=== PATIENT | male | born 1945 | race Caucasian/White ===

== ENCOUNTER → 2021-02-28 01:57 | Outpatient (CLI) | payer MEDICARE, SELFPAY ==
[2021-02-28 19:16] LABS: SARS-CoV-2 RNA PCR Negative
== END ==
PROVIDERS: PCP Physician Assistant; Visit Provider Internal Medicine Hematology & Oncology
DX: Z01.812 Encounter for preprocedural laboratory examination (principal); Z20.822 Contact with and (suspected) exposure to COVID-19
CPT/HCPCS: C9803; U0003; U0005

== ENCOUNTER 2021-03-04 01:20 | Day surgery (SDC) | payer MEDICARE, SELFPAY ==
--- NOTE | ~2021-03-04 | BM_ITS ---
EXAMINATION: CCL basic procedure ORDER COMPLETED DATE: 04/20/2021 13:35 INDICATION: Macrocytic anemia TECHNIQUE: A time-out was performed to verify the patient's name, date of , and procedure to b e performed. The procedure including the risks, benefits, and alternatives was discussed with the pat ient. Risks discussed included bleeding and infection. The patient understood the risks and agreed to proceed. The skin overlying the right posterior iliac spine was prepped and draped in usual sterile fashion. Anesthetic was administered with 1% lidocaine subcutaneously. Systemic analgesia was provide d with 50 mcg fentanyl IV. An 11 gauge needle was inserted into the ilium with fluoroscopic guidance. Bone marrow was aspirated. An 8 gauge needle was then inserted into the ilium with fluoroscopic guid ance. A core bone marrow biopsy was obtained. There were no immediate complications. Fluoroscopy expo sure time was 0.1 minutes. The total number of images was 44. FINDINGS: Real-time fluoroscopy demonstrates a marker overlying the right posterior iliac spine. IMPRESSION: 1. Successful fluoro-guided bone marrow aspiration. 2. Successful fluoro-guided bone marrow core biopsy. Reviewed, dictated and finalized at location A.
[2021-03-04 07:27] LABS: Basophils Absolute Auto 0.1 K/mm3 (0.0-0.1); Basophils Percent Auto 1.2 % (0.2-1.2); Eosinophils Absolute Auto 0.2 K/mm3 (0-0.3); Eosinophils Percent Auto 2.1 % (0-4.4); Hematocrit 35.2 % (42.0-52.0); Immature Granulocyte Absolute 0.02 K/mm3 (0.00-0.031); Immature Granulocyte Percent A 0.2 % (0-0.5); Lymphocytes Percent Auto 21.4 % (18.3-44.2); Mean Corpuscular HGB Conc 34.1 g/dl (32-36); Mean Corpuscular Hemoglobin 39.6 pg (26-34); Mean Corpuscular Volume 116.2 fl (80-100); Mean Platelet Volume 11.2 fl (7.4-10.4); Monocytes Absolute Auto 0.8 K/mm3 (0.1-0.6); Monocytes Percent Auto 8.9 % (2.6-8.5); Neutrophils Absolute Auto 5.9 K/mm3 (1.3-6.7); Neutrophils Percent Auto 66.2 % (45.5-73.1); Platelet Count Result 298 k/mm3 (150-375); Red Blood Count 3.03 M/mm3 (4.6-6.20); Red Cell Distribution Width 14.1 % (11.5-14.5); White Blood Count 8.9 K/mm3 (4.5-10.0)
[2021-03-04 07:36] LABS: INR 0.9; Prothrombin Time 12.7 Seconds (11.1-14.7)
[2021-03-04 07:48] VITALS: BP 147/96; PULSE 68; RESP 10; TEMP 36.2; O2SAT 96; BMI 28.4
--- NOTE | 2021-03-04 09:03 | P.SEDATION_ITS ---
Moderate Sedation Note-Pt Data Patient Data Allergies Allergy/AdvReac Type Severity Reaction Status Date / Time codeine Allergy Unknown TINGLING, Verified 03/03/21 15:33 FLUSHING ether Allergy Unknown NAUSEA/VOMI Verified 03/03/21 15:33 TING Home Medications Medication Instructions Recorded Confirmed Type albuterol sulfate [Ventolin HFA] 2 puff INHALATION DAILY 03/04/21 03/04/21 History aspirin 81 mg PO DAILY 03/04/21 03/04/21 History atorvastatin 40 mg PO DAILY 03/04/21 03/04/21 History cholecalciferol (vitamin D3) 50 mcg PO DAILY 03/04/21 03/04/21 History [Vitamin D3] cyanocobalamin (vitamin B-12) 1,000 mcg PO DAILY 03/04/21 03/04/21 History [Vitamin B-12] dorzolamide-timolol 1 drp EACH EYE BID 03/04/21 03/04/21 History latanoprost 1 drp EACH EYE HS 03/04/21 03/04/21 History lisinopril 40 mg PO DAILY 03/04/21 03/04/21 History metoprolol succinate 25 mg PO DAILY 03/04/21 03/04/21 History omeprazole 20 mg PO DAILY 03/04/21 03/04/21 History umeclidinium [Incruse Ellipta] 1 inh INHALATION DAILY 03/04/21 03/04/21 History Current Medications: Active Medications Sodium Chloride (Normal Saline Iv) 500 mls @ 100 mls/hr IV CONT .Q5H [facility] Sedation/Anesthesia: No previous sedation/anesthesia problems (including family history). Mod Sed Physical Exam Physical Exam Pre Procedural Exam: Normal: Appearance, Eyes, Ears, Nose, Throat, Airway, Lungs, Heart Rate, Heart Rhythm, Abdomen and Skin Hours since solid foods: 11 Hours since liquid intake: 11 Internal Medicine - PN: Obj Da Vital Signs Vital Signs: Vital Signs - 24 hr 03/04/21 07:48 Temperature 97.1 F L Pulse Rate 68 Respiratory Rate 10 L Blood Pressure 147/96 H Pulse Oximetry 96 Meds/Results Medications: Active Medications Generic Name Dose Route Start Last Admin Trade Name Freq PRN Reason Stop Dose Admin Sodium Chloride 500 mls @ 100 mls/hr 03/04/21 07:00 Normal Saline Iv IV CONT .Q5H [facility] Labs CBC & Chem 7: 03/04/21 07:14 Labs: Laboratory Results - last 24 hr 03/04/21 03/04/21 07:14 07:14 WBC 8.9 RBC 3.03 L Hgb 12.0 L Hct 35.2 L MCV 116.2 H MCH 39.6 H MCHC 34.1 RDW 14.1 Plt Count 298 MPV 11.2 H Immature Gran % (Auto) 0.2 Neut % (Auto) 66.2 Lymph % (Auto) 21.4 [place] % (Auto) 8.9 H Eos % (Auto) 2.1 Baso % (Auto) 1.2 Lymph # (Auto) 1.90 [place] # (Auto) 0.8 H Eos # (Auto) 0.2 Baso # (Auto) 0.1 Abs Immat Gran (auto) 0.02 Absolute Neuts (auto) 5.9 Absolute Nucleated RBC 0.0 Nucleated RBC % 0.0 PT 12.7 INR 0.9 ASA Classification/Sedation ASA Classification/Sedation Risks: Risks, benefits and alternatives explained and patient/family accepted plan for sedation. Patient re-evaluated immediately prior to sedation.
--- NOTE | 2021-03-04 09:05 | WPDMODSED ---
Moderate Sedation Note-Pt Data Patient Data Allergies Allergy/AdvReac Type Severity Reaction Status Date / Time codeine Allergy Unknown TINGLING, Verified 03/03/21 15:33 FLUSHING ether Allergy Unknown NAUSEA/VOMI Verified 03/03/21 15:33 TING Home Medications Medication Instructions Recorded Confirmed Type albuterol sulfate [Ventolin HFA] 2 puff INHALATION DAILY 03/04/21 03/04/21 History aspirin 81 mg PO DAILY 03/04/21 03/04/21 History atorvastatin 40 mg PO DAILY 03/04/21 03/04/21 History cholecalciferol (vitamin D3) 50 mcg PO DAILY 03/04/21 03/04/21 History [Vitamin D3] cyanocobalamin (vitamin B-12) 1,000 mcg PO DAILY 03/04/21 03/04/21 History [Vitamin B-12] dorzolamide-timolol 1 drp EACH EYE BID 03/04/21 03/04/21 History latanoprost 1 drp EACH EYE HS 03/04/21 03/04/21 History lisinopril 40 mg PO DAILY 03/04/21 03/04/21 History metoprolol succinate 25 mg PO DAILY 03/04/21 03/04/21 History omeprazole 20 mg PO DAILY 03/04/21 03/04/21 History umeclidinium [Incruse Ellipta] 1 inh INHALATION DAILY 03/04/21 03/04/21 History Current Medications: Active Medications Sodium Chloride (Normal Saline Iv) 500 mls @ 100 mls/hr IV CONT .Q5H [facility] Sedation/Anesthesia: No previous sedation/anesthesia problems (including family history). PMFSH Surgical History Surgical History (Updated 03/04/21 @ 09:11 by Sylvain Arambula MD) H/O knee surgery History of tonsillectomy Social History Social History (Updated 03/04/21 @ 09:12 by Sylvain Arambula MD) Smoking status: Former smoker Alcohol intake: current Mod Sed Physical Exam Physical Exam Pre Procedural Exam: Normal: Appearance, Eyes, Ears, Nose, Throat, Airway, Lungs, Heart Rate, Heart Rhythm, Abdomen and Skin Hours since solid foods: 11 Hours since liquid intake: 11 Internal Medicine - PN: Obj Da Vital Signs Vital Signs: Vital Signs - 24 hr 03/04/21 07:48 Temperature 97.1 F L Pulse Rate 68 Respiratory Rate 10 L Blood Pressure 147/96 H Pulse Oximetry 96 Meds/Results Medications: Active Medications Generic Name Dose Route Start Last Admin Trade Name Sundayq PRN Reason Stop Dose Admin Sodium Chloride 500 mls @ 100 mls/hr 03/04/21 07:00 Normal Saline Iv IV CONT .Q5H [facility] Labs CBC & Chem 7: 03/04/21 07:14 Labs: Laboratory Results - last 24 hr 03/04/21 03/04/21 07:14 07:14 WBC 8.9 RBC 3.03 L Hgb 12.0 L Hct 35.2 L MCV 116.2 H MCH 39.6 H MCHC 34.1 RDW 14.1 Plt Count 298 MPV 11.2 H Immature Gran % (Auto) 0.2 Neut % (Auto) 66.2 Lymph % (Auto) 21.4 [place] % (Auto) 8.9 H Eos % (Auto) 2.1 Baso % (Auto) 1.2 Lymph # (Auto) 1.90 [place] # (Auto) 0.8 H Eos # (Auto) 0.2 Baso # (Auto) 0.1 Abs Immat Gran (auto) 0.02 Absolute Neuts (auto) 5.9 Absolute Nucleated RBC 0.0 Nucleated RBC % 0.0 PT 12.7 INR 0.9 ASA Classification/Sedation ASA Classification/Sedation ASA Class: II Emergent: No Risks: Risks, benefits and alternatives explained and patient/family accepted plan for sedation. Patient re-evaluated immediately prior to sedation.
[2021-03-04 09:45] VITALS: BP 152/75; PULSE 54; RESP 12; TEMP 36.8; O2SAT 94
[2021-03-04 10:00] VITALS: BP 142/71; PULSE 56; RESP 14; O2SAT 96
[2021-03-04 10:15] VITALS: BP 132/72; PULSE 53; RESP 12; O2SAT 98
--- NOTE | 2021-03-04 10:40 | SUR.PHASEII ---
Discharge teaching done and instructions given to patient. Patient and verbalize understanding. Patient escorted to vehicle via wheelchair, where he was driven home by his .
== END 2021-03-04 10:40 | disposition home or self-care (01) ==
PROVIDERS: PCP Physician Assistant; Referring Provider Internal Medicine Hematology & Oncology; Visit Provider Radiology Diagnostic Radiology
DX: D53.9 Nutritional anemia, unspecified (principal); I10 Essential (primary) hypertension; E78.5 Hyperlipidemia, unspecified; J44.9 Chronic obstructive pulmonary disease, unspecified; F43.10 Post-traumatic stress disorder, unspecified; Z79.82 Long term (current) use of aspirin
CPT/HCPCS: 36415; 38222; 85025; 85610; 88184; 88185; 88305; 88311; 88313; 88341; 88342; 88360; 88364; 88365; C9803; J2250; J3010; J7040; U0003; U0005

== ENCOUNTER 2021-03-06 07:22 | Outpatient (CLI) | payer MEDICARE, SELFPAY ==
--- NOTE | ~2021-03-06 | US_ITS ---
EXAMINATION: US abdomen complete DATE: 03/06/2021 09:54 INDICATION: Liver disease TECHNIQUE: Multiple grayscale and Doppler ultrasound images of the abdomen were obtained. COMPARISON: None available FINDINGS: The head and body of the pancreas are normal. The pancreatic tail is obscured by bowel gas. The liver is normal with normal echogenicity and echotexture. No surface nodularity. Normal hepatope lucille flow in the main portal vein. The gallbladder is normal with no abnormal wall thickening, pericho lecystic fluid or stones. The normal common bile duct measures 4 mm. There was no sonographic Mcintosh sign. The visualized portions of the aorta and inferior vena cava are normal. The right kidney measures 14.2 x 8.9 x 7.1 cm. There is a 10.0 x 10.3 x 8.4 cm cystic lesion of the k idney with internal septations, some of which appear to be thickened. The left kidney measures 11.5 x 5.5 x 6.5 cm. The kidneys demonstrate normal parenchymal echogenicity. There is no hydronephrosis. T he spleen is normal in appearance and measures 11.0 cm. IMPRESSION: 1. 10.3 cm cystic lesion of the right kidney with internal septations. Further evaluation by CT or MR I with contrast is recommended. Otherwise unremarkable ultrasound. Reviewed, dictated and finalized at location A. IMPRESSION: 1. 10.3 cm cystic lesion of the right kidney with internal septations. Further evaluation by CT or MRI with contrast is recommended. Otherwise unremarkable ul trasound.
== END 2021-03-06 07:23 | disposition home or self-care (01) ==
LOC: ANHIMG 07:23
PROVIDERS: PCP Physician Assistant; Visit Provider Internal Medicine Hematology & Oncology
DX: K76.9 Liver disease, unspecified (principal); N28.9 Disorder of kidney and ureter, unspecified
CPT/HCPCS: 76700

== ENCOUNTER 2021-09-07 08:24 | Outpatient (CLI) | payer MEDICARE, SELFPAY ==
--- NOTE | ~2021-09-07 | CT_ITS ---
EXAMINATION: CT abdomen pelvis w con INDICATION: Right renal cyst TECHNIQUE: Computed tomographic images of the abdomen and pelvis were obtained after the administrati on of 100 cc of Omnipaque 350 intravenous contrast. The dose-length product (DLP) was 958.53 mGy-cm. Automated exposure control and iterative reconstruction technique were employed. COMPARISON: Ultrasound, 03/06/2021 FINDINGS: The lung bases are clear. The heart size is normal. Cysts of the liver measure up to 4 mm i n the left hepatic lobe. A 13 mm hypoattenuating lesion of the spleen likely reflects a cyst or heman gioma. The pancreas, gallbladder, and adrenal glands are normal. There is a 10.5 x 8.7 cm cyst of the right kidney with thin internal septations and some septal calcifications. Cysts of the left kidney measure up to 10 mm. Nonobstructing stones of the left kidney measure up to 4 mm. No pathologically e nlarged abdominal or pelvic lymph nodes are identified. There is no free intraperitoneal gas or evide nce of bowel obstruction. The appendix is normal. Colonic diverticulosis is present without evidence of diverticulitis. There is moderate lumbar spondylosis. IMPRESSION: 1. 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 Follow-up CT or MRI without and with contrast in six month s is recommended. Reviewed, dictated and finalized at location B. ED PRODUCTS INSPECTOR TRIMMER IMPRESSION: 1. 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 Follow-up CT or MRI without and with contrast in six months is recommended.
[2021-09-07 09:43] LABS: Estimated Glomerular Filt Rate 50
== END 2021-09-07 08:25 | disposition home or self-care (01) ==
PROVIDERS: PCP Physician Assistant; Visit Provider Internal Medicine Hematology & Oncology
DX: N28.1 Cyst of kidney, acquired (principal); N28.9 Disorder of kidney and ureter, unspecified
CPT/HCPCS: 74177; Q9967

== ENCOUNTER 2022-05-06 09:46 | Outpatient (CLI) | payer MEDICARE, SELFPAY ==
--- NOTE | ~2022-05-06 | CT_ITS ---
EXAMINATION: CT abdomen pelvis wo/w con DATE: 05/06/2022 10:31 INDICATION: Cyst of the right kidney TECHNIQUE: Computed tomography (CT) of the abdomen was performed without intravenous contrast. CT of the abdomen and pelvis was then performed with a total of 100 mL Omnipaque 300 intravenous contrast. The dose-length product (DLP) was 1589.42 mGy-cm. Automated exposure control and iterative reconstruc tion technique were employed. COMPARISON: 09/07/2021 FINDINGS: The lung bases are clear. The heart size is normal. Cysts of the liver measure up to 4 mm i n the left hepatic lobe. There is a stable 13 mm hypoattenuating lesion of the spleen. The pancreas, gallbladder, and adrenal glands are normal. There is a 10.1 x 9.1 cm cyst of the right kidney which c ontains internal septations, some of which are calcified and up to 3 mm thick. Nonobstructing stones of the left kidney measure up to 4 mm. Cysts of the left kidney measure up to 10 mm. There is calcifi ed atherosclerosis of the aorta and many of the other arteries. No pathologically enlarged abdominal or pelvic lymph nodes are identified. Colonic diverticulosis is present without evidence of diverticu litis. The appendix is normal. There is moderate lumbar spondylosis. There is no free intraperitoneal gas or evidence of bowel obstruction. IMPRESSION: 1. 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 Follow-up CT or MRI without and with contrast in si x months is recommended. Reviewed, dictated and finalized at location B. IMPRESSION: 1. 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 Follow-up CT or MRI without a nd with contrast in six months is recommended.
[2022-05-06 10:20] LABS: Estimated Glomerular Filt Rate 59
== END 2022-05-06 09:47 | disposition home or self-care (01) ==
PROVIDERS: PCP Physician Assistant; Visit Provider Internal Medicine Hematology & Oncology
DX: N28.1 Cyst of kidney, acquired (principal)
CPT/HCPCS: 74178; Q9967

== ENCOUNTER 2022-11-11 07:33 | Outpatient (CLI) | payer MEDICARE, SELFPAY ==
--- NOTE | ~2022-11-11 | CT_ITS ---
EXAMINATION: CT abdomen pelvis wo/w con DATE: 11/11/2022 08:09 INDICATION: Renal cyst TECHNIQUE: Computed tomography (CT) of the abdomen was performed without intravenous contrast. CT of the abdomen and pelvis was then performed with a total of 130 mL Omnipaque 350 intravenous contrast u sing a double-bolus technique for simultaneous opacification of the renal parenchyma and renal collec ting system. The dose-length product (DLP) was 1515.23 mGy-cm. Automated exposure control and iterati ve reconstruction technique were employed. COMPARISON: 05/06/2022, 09/17/2021 FINDINGS: The lung bases are clear. The heart size is normal. There is circumferential wall thickenin g of the distal esophagus which could reflect esophagitis. There is a trace pericardial effusion. Cys ts of liver measure up to 4 mm. There is a stable 13 mm hypoattenuating lesion is noted in the spleen . The pancreas, gallbladder, and adrenal glands are normal. There is a stable 10.1 x 9.1 cm cystic ma ss of the right kidney. Again seen are thin internal septations measuring up to 3 mm, some of which d emonstrate stable calcification. No suspicious interval change is identified. Stable cysts of the lef t kidney measure up to 4 mm. There are nonobstructing stones of the left kidney measuring up to 3 mm. No pathologically enlarged abdominal or pelvic lymph nodes are identified. There is no free intraper itoneal gas or evidence of bowel obstruction. There is calcified atherosclerosis of the aorta and man y of the other arteries. Colonic diverticulosis is present without evidence of diverticulitis. The ap pendix is normal. There is moderate lumbar spondylosis. There is a stable T11 compression fracture. IMPRESSION: 1. Stable Bosniak IIF cystic lesion of the right kidney. Follow-up CT or MRI without and with contras t in 12 months is recommended. Reviewed, dictated and finalized at location L. ANALYST IMPRESSION: 1. Stable Bosniak IIF cystic lesion of the right kidney. Follow-up CT or MRI wi thout and with contrast in 12 months is recommended.
[2022-11-11 08:03] LABS: Estimated Glomerular Filt Rate 49
== END 2022-11-11 07:34 | disposition home or self-care (01) ==
PROVIDERS: PCP Physician Assistant; Visit Provider Internal Medicine Hematology & Oncology
DX: N28.1 Cyst of kidney, acquired (principal)
CPT/HCPCS: 74178; Q9967

== ENCOUNTER 2023-08-16 01:52 | Day surgery (SDC) | payer MEDICARE, SELFPAY ==
[2023-08-08 13:40] VITALS: BMI 28.9
[2023-08-16 10:30] VITALS: BP 151/81; PULSE 81; RESP 16; TEMP 36.4; O2SAT 100; BMI 27.8
[2023-08-16] MEDS: LACTATED RINGERS 1,000 ML 150 ML IV CONT (10:50)
--- NOTE | 2023-08-16 10:50 | P.HP_ITS ---
History of Present Illness History of Present Illness Consent: Risks, benefits, and alternatives have been discussed and questions answered. Patient agrees to proceed with procedure. Chief complaint: Personal history of colon polyps Narrative: Andre Diaz is a 77 year old male Presents for colonoscopy. Patient has a history of adenomatous colon polyp removed from the colon 2017. Patient has current weight appetite bowel movements are normal. Patient denies abdominal pain. He has had no bleeding. Review of Systems Review of Systems: Review of systems noncontributory. [facility] Surgical History Surgical History (Updated 03/04/21 @ 09:11 by Sylvain Arambula MD) H/O knee surgery History of tonsillectomy Social History Social History (Updated 03/04/21 @ 09:12 by Sylvain Arambula MD) Smoking status: Current every day smoker Alcohol intake: current Substance use: current Substance use type: marijuana Other substance usage details: smokes marijuana Last use: 08/07/23 Living arrangements: other Additional living arrangements comments: With sp Meds Home Medications and Allergies Home Medications Medication Instructions Recorded Confirmed Type albuterol sulfate 90 mcg/actuation 2 puff inhalation DAILY PRN 03/04/21 08/16/23 History aerosol inhaler (Ventolin HFA) Shortness Of Breath dorzolamide 22.3 mg-timolol 6.8 1 drp EACH EYE BID 03/04/21 08/16/23 History mg/mL eye drops latanoprost 0.005 % eye drops 1 drp EACH EYE HS 03/04/21 08/16/23 History umeclidinium 62.5 mcg/actuation 1 inh inhalation DAILY 03/04/21 08/16/23 History blister powder for inhalation (Incruse Ellipta) cyclobenzaprine 5 mg tablet 5 mg PO DAILY 08/08/23 08/16/23 History Allergies Allergy/AdvReac Type Severity Reaction Status Date / Time codeine Allergy Unknown TINGLING, Verified 08/16/23 10:40 FLUSHING ether Allergy Unknown NAUSEA/VOMI Verified 08/16/23 10:40 TING Vital Signs Vital Signs - 24 hr 08/16/23 10:30 Temperature 97.6 F Pulse Rate 81 Respiratory Rate 16 Blood Pressure 151/81 H Pulse Oximetry 100 Oxygen Delivery Room Air Exam Narrative: Physical exam reveals patient to be alert. Vital signs stable. HEENT exam is unremarkable. Patient is anicteric. Lungs are clear to auscultation and percussion. Heart is without murmur or extra sounds. Abdomen bowel sounds are present soft nontender with no organomegaly. Digital external rectal exam is normal. Assessment and Plan Assessment and plan (1) History of colon polyps: Code(s): Z86.010 - Personal history of colonic polyps Status: Acute Assessment and Plan: Patient has a history of colon polyps. For this reason surveillance colonoscopy suggested in 5 year intervals. Further recommendations may be given after endoscopy.
[2023-08-16 12:24] VITALS: BP 138/87; PULSE 71; RESP 20; O2SAT 99
[2023-08-16 12:34] VITALS: BP 155/78; PULSE 70; RESP 70; O2SAT 100
[2023-08-16 12:44] VITALS: BP 157/87; PULSE 73; RESP 68; O2SAT 98
== END 2023-08-16 12:52 | disposition home or self-care (01) ==
PROVIDERS: PCP Physician Assistant; Visit Provider Internal Medicine Gastroenterology
PROC: 0DJD8ZZ Inspection of Lower Intestinal Tract, Via Natural or Artificial Opening Endoscopic (ICD-10-PCS; CPT 45378; principal; 2023-08-16 11:30)
DX: Z12.11 Encounter for screening for malignant neoplasm of colon (principal); D12.2 Benign neoplasm of ascending colon; K63.5 Polyp of colon; K57.30 Diverticulosis of large intestine without perforation or abscess without bleeding; K64.8 Other hemorrhoids; F12.90 Cannabis use, unspecified, uncomplicated; Z79.51 Long term (current) use of inhaled steroids
CPT/HCPCS: 45385; 88305; J2704; J7120

== ENCOUNTER 2023-11-18 08:06 | Outpatient (CLI) | payer MEDICARE, SELFPAY ==
--- NOTE | ~2023-11-18 | CT_ITS ---
EXAMINATION: CT abdomen pelvis w con DATE: 11/18/2023 09:06 INDICATION: Renal cyst TECHNIQUE: Computed tomography (CT) of the abdomen and pelvis was performed with 100 mL Omnipaque-350 intravenous contrast. Automated exposure control and iterative reconstruction technique were employe d. The dose-length product was 1020.82 mGy-cm. COMPARISON: 11/11/2022 FINDINGS: Lung bases are clear. Heart size is normal. No pericardial or pleural effusion. Subcentimeter cyst in the left hepatic lobe. Gallbladder and pancreas are normal. Couple unchanged subcentimeter cysts in the spleen. No interval change in a bilateral adrenal adenomas measuring 2.0 cm on the left and 1.5 c m on the right. No significant interval change in a 10.0 x 9.1 cm multiloculated Bosniak 2F cystic le neris in the right kidney with a few thin internal septations, couple septations with small amount of calcification. No solid enhancing nodular soft tissue component. There are few additional simple appe aring subcentimeter parenchymal and parapelvic cysts at both kidneys. There are 4 nonobstructing ston es measuring up to 3 mm in the left kidney. No other stones in the right kidney or long the bilateral ureters. No hydronephrosis. There is moderate sigmoid diverticulosis without adjacent inflammatory c hange to suggest diverticulitis. Small bowel and appendix are normal. Bladder is normal. Prostatomega ly. No free intraperitoneal gas or fluid. No pathologically enlarged abdominal or pelvic lymphadenopa thy. Chronic T11 compression fracture with 20% anterior vertebral body height loss. IMPRESSION: 1. No interval change in a 10 cm Bosniak 2F cystic lesion in the right kidney. Recommend continued an nual follow-up pre and postcontrast CT or MRI which could be discontinued following 5 years of stabil ity. 2. Nonobstructing left nephrolithiasis. 3. Moderate sigmoid diverticulosis. Reviewed, dictated and finalized at location A. RNATIONAL ACCOUNT REPRESENTATIVE IMPRESSION: 1. No interval change in a 10 cm Bosniak 2F cystic lesion in the right kidney. Recommend continued annual follow-up pre and postcontrast CT or MRI which could be discontinued following 5 years of stability. 2. Nonobstructing left nephrolithiasis. 3. Moderate sigmoid diverticulosis.
[2023-11-18 08:56] LABS: Estimated Glomerular Filt Rate 42
== END 2023-11-18 08:07 | disposition home or self-care (01) ==
PROVIDERS: Visit Provider Internal Medicine Hematology & Oncology
DX: N28.1 Cyst of kidney, acquired (principal); N20.0 Calculus of kidney; K57.30 Diverticulosis of large intestine without perforation or abscess without bleeding
CPT/HCPCS: 74177; Q9967

== ENCOUNTER 2025-05-31 11:08 | Outpatient (CLI) | payer MEDICARE, SELFPAY ==
--- OUTSIDE RECORDS SUMMARY | 2025-05-31 11:13 | XMS_ITS | Clinical Summary ---
Author Organization [facility] Address [address] [place] [address] Care Team Providers Care Nursing Care Attendant Name Role Phone Elvin Mayer MD Primary Care Provider [phone] Source Comments [facility],non-owned Affiliates and Associated Physician Practices is amultiple site organization consisting of ambulatory clinics and hospital sitesin [place], [place], [place] and [place]. This disclosure is being madepursuant to the Care Everywhere program and may not contain all information available regarding this patient. Last updated 18.[employer] Social History Tobacco Use Types Packs/Day Years Used Date Smoking Tobacco: Never Assessed Sex and Gender Information Value Date Recorded Sex Assigned at Not on file Legal Sex Male 11:03 AM CDT Gender Identity Not on file Sexual Orientation Not on file Plan of Treatment Health Maintenance Due Date Last Done Comments HEPATITIS C SCREENING 10/18/1963 DTAP/TDAP/TD VACCINES (1 - Tdap) 1966 PNEUMOCOCCAL VACCINE 50+ (1 of 1 - PCV) 1997 ZOSTER VACCINE (1 of 2) 1997 Respiratory Syncytial Virus (RSV) Vaccine Pt: or over 60 yrs (1 - 1-dose 75+ series) 2022 COVID-19 VACCINE ( - 2023-2 5 season) 2024 DEPRESSION SCREENING 10/31/2024 MEDICARE AWV CALENDAR YEAR 2024 INFLUENZA VACCINE (#1) 2025 HEPATITIS B VACCINE Aged Out No longe r eligible based on patient's age to complete this topic HIB VACCINE Aged Out No longer eligi ble based on patient's age to complete this topic HPV VACCINE Aged Out No longer eligi ble based on patient's age to complete this topic MENINGOCOCCAL (Group B) VACC INE SHARED DECISION-MAKING Aged Out No longer eligibl e based on patient's age to complete this topic MENINGOCOCCAL GROUPS A/C/Y/W VACCINE Aged Out No longer eligible b ased on patient's age to complete this topic Insurance AETNA AETNA MEDICARE ADV Care Teams Nursing Care Attendant Relationship Specialty Start Date End Date Elvin Mayer MD [address] [place] [address] PCP - General 04/10/18
--- OUTSIDE RECORDS SUMMARY | 2025-05-31 11:13 | XMS_ITS | Encounter Summary ---
Author Organization [facility] Address [address] [facility] [place] [address] Care Team Providers Care Installer Metal Flooring Name Role Phone Elvin Mayer MD Primary Care Provider [phone] Encounter Details Date Type Department Care Team (Late st Contact Info) Description 03/05/2021 Lab Requisition [facility] Care Pathology Lab [address] [place] [address] Koby Tapia MD [address] [facility] [address] [place] [address] Illness, unspecified Social History Tobacco Use Types Packs/Day Years Used Date Smoking Tobacco: Never Assessed Sex and Gender Information Value Date Recorded Sex Assigned at Not on file Legal Sex Male 11:03 AM CDT Gender Identity Not on file Sexual Orientation Not on file documented as of this encounter Plan of Treatment Not on file documented as of this encounter Procedures Procedure Name Priority Date/Time Associated Diagnosis Comments BONE MARROW BIOPSY (STL) Routine 03/04/2021 9:20 AM CDT Illness, unspecified documented in this encounter Results * BONE MARROW BIOPSY (STL) (03/04/2021 9:20 AM CDT) Case Report Bone Marrow Patholog y Report Case: [id number] Authorizing Provider: Koby Tapia MD Collected: 03/04/2021 09:20 AM Ordering Location: [facility] Care Pathology Lab Received: 03/05/2021 03:29 PM Pathologist: Chiquis Edwards Mai, DO Specimens: A) - Bone Marrow Clot B) - Bone Marrow Core C) - Bone Marrow Aspirate D) - Blood Peripheral 03/18/2021 12:19 PM CDT [facility] Final Diagnosis Bone marrow, aspirate, clot section, and core biopsy: - Hypercellular marrow with maturing trilineage hematopoiesis. - No morphologic evidence of lymphoma or high-grade myeloid neoplasm. - Noroton/lambda in situ hybridization failed, pending repeat studies. - See description. Peripheral blood smear: - Macrocytic anemia.. - See description. 03/18/2021 12:19 PM [facility] at 1631 CDT AP Comment Overall, the bone marrow specimen is hypercellular for age (40-50%) with maturing trilineage hematopoiesis. The aspirate smears are suboptimal for morphologic examination. The clinical history of macrocytic anemia is noted but the erythroids could not be carefully examined on aspirate due to the low number of erythroids (i.e. to look for dysplasia, megaloblastic anemia, etc.). Macrocytic anemia can be seen with nutritional deficiency (i.e. vitamin B12 or folate), absorption defects (i.e.pernicious anemia), medication effect (i.e. metformin,aminosalicyl ates, etc.), toxins (i.e. ethanol), hypothyroidism, liver disease or in the appropriate clinical and cytogenetic context, myelodysplastic syndrome. The core biopsy was excellent quality and demonstrated maturing trilineage hematopoiesis. There was a subset of hypolobated megakaryocytes seen concerning for dyspoiesis. Dyspoiesis is a morphologic change that may be seen in nutritional deficiency, viral infection, medication effect (myelotoxic/myelosuppr essive drugs), toxin exposure, autoimmune disorder, or in the appropriate clinical and cytogenetic context, a primary myelodysplastic syndrome (MDS). A low-grade MDS may be considered if all secondary causes are excluded and established if an appropriate cytogenetic abnormality is identified. Due to the suboptimal nature of the aspirate smears and clinical history of anemia, the plasma cells were evaluated by CD138 and kappa/lambda in situ hybridization (MADHURI) to assess for clonality but the MADHURI failed did not stain anything. As such, the test will be repeated. Correlation with clinical findings and relevant cytogenetic/molecular testing is required. 03/18/2021 12:19 PM [facility] Peripheral Smear Description Leukocytes: Adequate with mild toxic/reactive changes Erythrocytes: Macrocytic anemia with mild anisopoikilocytosis including ovalocytes and mild polychromasia Platelets: Adequate with occasional giant platelets 03/18/2021 12:19 PM [facility] Bone Marrow Aspirate Differential count (200 cells): 1% blasts, 74.5% maturing myeloid precursors, 8.5% erythroid progenitors, 1.5% monocytes, 2.5% eosinophils, 11.5% lymphocytes, 0.5% plasma cells. The aspirate smears are suboptimal with some platelet clumps and very rare scant minute particles. Myeloid to erythroid ratio is 9.2:1, however, the sample is hemodilute in this may not be employment representative. Myeloid maturation is intact and progresses to segmented neutrophils. Erythroids are few in number but appear to mature with no significant abnormalities. There are insufficient megakaryocytes to assess for dysplasia. The provided iron stain shows the following Storage iron (by special stain): Decreased stainable storage iron however the sample is aspiculate and hemodilute--overall suboptimal for examination. Control is appropriately reactive. Sideroblastic iron (by special stain): No ring sideroblasts are seen, however, the sample is suboptimal and there is a decreased number of erythroids for evaluation 03/18/2021 12:19 PM [facility] Bone Marrow Core Biopsy and Clot Section Description The core biopsy is excellent with 2.0 cm of evaluable marrow. Cellularity is estimated at 40-50%. The clot section is wall spiculated with similar morphologic findings to the core. A provided iron stain showing trace amounts of storage iron are present. The marrow compartment shows maturing trilineage hematopoiesis. Myeloids and erythroids show complete maturation with no abnormal localization. Megakaryocytes show focal loose clustering. A few of the megakaryocytes show hypolobated nuclei. Immunohistochemical stains are performed on the core biopsy in the [facility] Department of Pathology, with appropriately reactive controls, and demonstrate the following: CD34: Highlights scattered blasts (overall less than 5% of marrow cellularity) CD117: Stains scattered mast cells without forming aggregates E-cadherin: Highlights scattered erythroids CD138: Highlights plasma cells distributed singly and in small perivascular clusters, plasma cells comprise approximately 5% of marrow cellularity Noroton/lambda in situ hybridization: Failed; plasma cells are present by CD138 but do not jessica with either light chain 03/18/2021 12:19 PM [facility] Flow Cytometry Summary [id number]: No evidence of non-Hodgkin lymphoma or high-grade myeloid neoplasm 03/18/2021 12:19 PM [facility] Clinical History Macrocytic anemia 03/18/2021 12:19 PM [facility] Materials Received Received are 17 slide(s) and 3 blocks labeled [id number] along with a copy of the outside pathology report. [place] [address]. All original materials are returned to the referring institution, along with a copy of our final report. 03/18/2021 12:19 PM [facility] Disclaimer The performance characteristics of all immunohistochemical and indirect immunofluorescence stains (if any) cited in this report were determined by the Histopathology Laboratory of [facility]. Some of these tests were developed by our own laboratory and have not been cleared or approved by the US Food and Drug Administration. The FDA does not require this test to go through premarket FDA review. These tests are used for clinical purposes. They should not be regarded as investigational or for research. This laboratory is certified under the Clinical Laboratory Improvement Amendments (CLIA) as qualified to perform high complexity clinical laboratory testing. This case has been personally reviewed and interpreted by the attending (teaching) pathologist. 03/18/2021 12:19 PM [facility] Addendum 1 Noroton/lambda in situ hybridization studies with appropriate controls were attempted two separate blocks and negative. The number of plasma cells may be too low or this may be due to fixation. There was no increase in plasma cells by manual count or by immunohistochemistry and there is no clonal B-cell population identified on flow cytometry. The diagnosis remains unchanged. 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 These findings are consistent with a myelodysplastic syndrome. Original diagnosis remains unchanged. 03/18/2021 12:19 PM [facility] Addendum electronically signed by Nohemy Chong MD on 03/18/2021 at 1219 CDT Embedded Images 03/18/2021 12:19 PM CDT [facility] Pathology/Cytology PERIPHERAL BLOOD / Unknown 03/04/2021 9:20 AM CDT 03/05/2021 3:29 PM CDT Miscellaneous samples (specimen) BONE MARROW SPECIMEN / Unknown 03/04/2021 9:20 AM CDT 03/05/2021 3:29 PM CDT Miscellaneous samples (specimen) SPECIMEN FROM BONE MARROW OBTAINED BY ASPIRATION / Unknown 03/04/2021 9:20 AM CDT 03/05/2021 3:29 PM CDT Miscellaneous samples (specimen) PERIPHERAL BLOOD / Unknown 03/04/2021 9:20 AM CDT 03/05/2021 3:29 PM CDT Koby Tapia MD LAB - PATHOLOGY/CYTOLOGY ORDER DIANA Edited Result - Final Performing Organization Address City/[facility] de Phone Number [facility] [address] [phone] documented in this encounter Visit Diagnoses Diagnosis Illness, unspecified documented in this encounter Care Teams Installer Metal Flooring Relationship Specialty Start Date End Date Elvin Mayer MD [address] [place] [id number] PCP - General 04/10/18 documented as of this encounter
--- OUTSIDE RECORDS SUMMARY | 2025-05-31 11:13 | XMS_ITS | Encounter Summary ---
Author Organization [facility] Address [address] [facility] [place] [address] Care Team Providers Care Arabic Professor Name Role Phone Elvin Mayer MD Primary Care Provider [phone] Encounter Details Date Type Department Care Team (Late st Contact Info) Description 03/04/2021 Lab Requisition [facility] Pathology Lab [address] [place] [address] Koby Tapia MD [address] [facility] [address] [place] [address] Anemia in other chronic diseases classified elsewhere Social History Tobacco Use Types Packs/Day Years [...] Procedure Name Priority Date/Time Associated Diagnosis Comments FLOW CYTOMETRY BONE MARROW Routine 03/04/2021 9:20 AM CDT Anemia in other chronic diseases classified elsewhere documented in this encounter Results * FLOW CYTOMETRY BONE MARROW (03/04/2021 9:20 AM CDT) Case Report Flow Cytometry Case: [id number] Authorizing Provider: Koby Tapia MD Collected: 03/04/2021 09:20 AM Ordering Location: [facility] Care Pathology Lab Received: 03/04/2021 02:51 PM Pathologist: Chiquis Edwards Mai, DO Specimen: Bone Marrow 03/04/2021 7:01 PM CDT [facility] Final Diagnosis Bone marrow, flow cytometric immunophenotypic analysis: - No evidence of non-Hodgkin lymphoma or high-grade myeloid neoplasm. - See interpretation. 03/04/2021 7:01 PM [facility] at [address] [facility] Flow Cytometry Interpretation The bone marrow specimen has a viability of 100 %. The lymphocyte, dim CD45, monocyte, and granulocyte chen are normal in relative proportion. Within the lymphocyte gate, there is no monotypic B-cell population identified (kappa: lambda ratio = 1.1:1). There is no expanded T-cell population seen. By CD33/CD34, 2.4% of all events analyzed are myeloid blasts. By CD10/CD19, 1.9% of all events are hematogones. A bone marrow aspirate smear prepared from the flow cytometry specimen is reviewed for quality control assistant purposes. The smear is spiculated and cellular. The bone marrow aspirate specimen shows no evidence of involvement by non-Hodgkin lymphoma or a high-grade myeloid neoplasm. Correlation with clinical findings, the concurrent bone marrow core biopsy (accession number pending), and relevant cytogenetic/molecu lar studies is required. 03/04/2021 7:01 PM [facility] Flow Cytometry Results Differential Result Comment Flow Cell Count /uL 205,000 Total Viability % 100.0 Lymphocytes % 9 Dim CD45 Region % 7 Monocytes % 9 Granulocytes % 74 03/04/2021 7:01 PM [facility] Reason for test Anemia in other chronic diseases classified elsewhere 03/04/2021 7:01 PM [facility] Client Specimen ID # [id number] 03/04/2021 7:01 PM [facility] Number of markers 19 were performed. A-1 Flow CD2 A-3 Flow CD14 A-6 Flow CD117 A-7 Flow CD11b A-8 Flow CD11c A-11 Flow CD10 A-12 Flow CD13 A-14 Flow CD20 A-2 Flow CD7 A-4 Flow CD56 A-5 Flow CD64 A-10 Flow CD5 A-13 Flow CD19 A-15 Flow CD33 A-16 Flow CD34 A-17 Flow CD45 A-9 Flow HLA-DR A-18 [place]+CD19+ A-19 Lambda+CD19+ 03/04/2021 7:01 PM [facility] Disclaimer Test performed at [facility], [address] [place] [address], [id number]. *The established laboratory minimum viability is 70%. Values below the minimum may result in the failure to find an abnormal population of cells. This test was developed and its performance characteristics determined by the Flow Cytometry Laboratory. It has not been cleared by the [place] Food and Drug Administration (FDA). The FDA has determined that such clearance or approval is not necessary. This test is used for clinical purposes. It should not be regarded as investigational or for research. This laboratory is regulated under the Clinical Laboratory Improvement Amendments of 1998 (CLIA) as a qualified to perform high complexity clinical testing. 03/04/2021 7:01 PM CDT [facility] Embedded Images 7:01 PM CDT [facility] Pathology/Cytolo gy BONE MARROW SPECIMEN / Unknown 03/04/2021 9:20 AM CDT 03/04/2021 2:51 PM CDT Koby Tapia MD LAB - PATHOLOGY/CYTOLOGY ORDER DIANA Final Result Performing Organization Address City/State/[facility] Co de Phone Number [facility] [address] [phone] documented in this encounter Visit Diagnoses Diagnosis Anemia in other chronic diseases classified elsewhere documented in this encounter Care Teams Arabic Professor Relationship Specialty Start Date End Date Elvin Mayer MD [facility] [place] [address] PCP - General 04/10/18 documented as of this encounter
--- OUTSIDE RECORDS SUMMARY | 2025-05-31 11:13 | XMS_ITS | Clinical Summary ---
Author Organization [facility] Address [address] [place] [address] Care Team Providers Care Heel Wheeler Name Role Phone Unavailable Primary Care Provider Unavailabl e Allergies Active Allergy Reactions Criticality Noted Date Comments Codeine Hives,Palpitations,S hortness of Breath/Wheezing High 02/25/2021 Medications albuterol HFA 90 mcg inhaler Take by inhalation. 1 Active timolol maleate/latanop luma/PF (timoloL-latano prost,PF,) 0.5-0.005 % Drops by Ophthalmic route. 1 Active umeclidinium (Incruse Ellipta) 62.5 mcg/actuation Disk with Device Take by inhalation. 1 Active dorzolamide-anahi oloL (COSOPT) 22.3-6.8 mg/mL solution 2 Active latanoprost (XALATAN) 0.005 % solution INSTILL 1 DROP INTO BOTH EYES AT BEDTIME 2 Active metoprolol succinate (TOPROL XL) 25 mg Extended Release 24 hour tablet metoprolol succinate 25 mg tablet extended release 24 hr 1 Active lisinopriL (PRINIVIL) 40 mg tablet lisinopril 40 mg tablet 1 Active cyclobenzaprine (FLEXERIL) 10 mg tablet Take 1 Tablet by mouth 3 times daily. 4 Active ondansetron (ZOFRAN ODT) 8 mg Tablet, Rapid DissolveIndicat ions:Myelodyspl astic syndrome with 5q deletion (CMS/HCC) Dissolve 1 tablet on top of tongue then swallow with saliva every 8 hours as needed for nausea or vomiting 30 Tablet 1 4 Active VITAMIN E ORAL Take 180 mcg by mouth daily. Take 2 tablets Active sertraline (ZOLOFT) 25 mg tablet Take 1 Tablet by mouth daily. 5 Active Active Problems Problem Noted Date Diagnosed Date Myelodysplastic syndrome with 5q deletion 2020 Macrocytic anemia 02/25/2021 Encounters Date Type Department Care Team Description 05/27/2025 Orders Only [facility] Oncology and Hematology - Rob[address] [phone] Edgar Collado MD Chronic anemia 05/23/2025 4:30 PM CDT Telephone Check Up [facility] Oncology and Hematology - [address] [place] [address] Edgar Collado MD 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) 05/22/2025 Orders Only [facility] Oncology and Hematology - [address] [place] [address] Edgar Collado MD 05/20/2025 Orders Only [facility] Oncology and Hematology - [address] [place] [phone] Edgar Collado MD 05/17/2025 Orders Only [facility] Oncology and Hematology - [address] [place] [address] Edgar Collado MD 05/16/2025 2:00 PM CDT Office Visit [facility] Oncology and Hematology - [address] [place] [address] Edgar Collado MD Chronic anemia (Primary Dx) 05/15/2025 External Device Data STL ABSTRACTION Provider, Abstract 05/15/2025 Orders Only [facility] Oncology and Hematology - [address] [place] [address] Edgar Collado MD Chronic anemia (Primary Dx) 05/14/2025 External Device Data STL ABSTRACTION Provider, Abstract 05/13/2025 [facility] Only [facility] Oncology and Hematology - [address] [phone] Edgar Collado MD Chronic anemia 04/29/2025 Orders Only [facility] Oncology and Hematology - [address] [place] [phone] Edgar Collado MD Chronic anemia 04/16/2025 External Device Data STL ABSTRACTION Provider, Abstract 04/15/2025 Orders [facility] Oncology and Hematology - [address] [place] [phone] Edgar Collado MD Chronic anemia 04/05/2025 Orders Only [facility] Oncology and Hematology - [address] [place] [phone] Edgar Collado MD 04/03/2025 Orders [facility] Oncology and Hematology - [address] [place] [phone] Edgar Collado MD 04/01/2025 Orders [facility] Oncology and Hematology - [address] [place] [phone] Edgar Collado MD Chronic anemia 03/26/2025 External Device Data STL ABSTRACTION Provider, Abstract 03/20/2025 External Device Data STL ABSTRACTION Provider, Abstract 03/19/2025 External Device Data STL ABSTRACTION Provider, Abstract 03/18/2025 Orders Only [facility] Oncology and Hematology - [address] [place] [phone] Edgar Collado MD Chronic anemia 03/08/2025 Orders Only [facility] Oncology and Hematology - [address] [place] [address] Edgar Collado MD 03/06/2025 2:00 PM CDT Office Visit [facility] Oncology and Hematology - [address] [place] [address] Edgar Collado MD Chronic anemia (Primary Dx) 03/04/2025 Orders Only [facility] Oncology and Hematology [facility] [address] [place] [address] Edgar Collado MD Chronic anemia from Last 3 Months Immunizations Immunization Administration Dates Next Due (PFIZER)(12 YR UP) COVID-19 VACCINE - EMERGENCY USE AUTHORIZATION, MRNA, [id number](PF) 30 MCG/0.3 ML IM SUSP 06/23/2021,06/09/2021 Family History Relation Name Status Comments Daughter 1 Alive Daughter 2 Alive Father Mother Paternal Cousin Alive Sister Alive Social History Tobacco Use Types Packs/Day Years Used Date Smoking Tobacco: Former Smokeless Tobacco: Never Tobacco Cessation:Counseling Given: Not Answered Alcohol Use Standard Drinks/Week Comments Yes 0 (1 standard drink = 0.6 oz pur e alcohol) Sex and Gender Information Value Date Recorded Sex Assigned at Not on file Legal Sex Male 1:55 PM CDT Gender Identity Not on file Sexual Orientation Not on file Last Filed Vital Signs Vital Sign Reading Time Taken Comments Blood Pressure 107/62 05/16/2025 1:41 PM CDT Pulse 80 05/16/2025 1:41 PM CDT Temperature 36.2 C (97.2 F) 05/16/2025 1:41 PM CDT Respiratory Rate 15 05/16/2025 1:41 PM CDT Oxygen Saturation 98% 05/16/2025 1:41 PM CDT Inhaled Oxygen Concentration - - Weight 93.3 kg (205 lb 9.6 oz) 05/16/2025 1:41 P M CDT Height 190.5 cm (6' 3) 05/19/2023 3:44 PM CDT Body Mass Index 25.7 05/19/2023 3:44 PM CDT Plan of Treatment Upcoming Encounters Date Type Department Care Team (Late st Contact Info) Description 06/26/2025 1:15 PM CDT Office Visit [facility] Oncology and Hematology [facility] [address] [place] [address] Edgar Collado MD [address] [facility] [address] [place] [phone] Health Maintenance Due Date Last Done Comments ZOSTER VACCINE (1 of 2) 1997 RSV VACCINE (60+ or ) (1 - 1-dose 75+ series) 2022 COVID-19 Vaccine (2023-2 5 season) 2024 09/24/2023, 10/06/2022, 05/06/2022, Additional history exists INFLUENZA VACCINE (#1) 2025 DTAP/TDAP/TD VACCINES (2 - T d or Tdap) 01/16/2033 01/16/2023 PNEUMOCOCCAL VACCINE 50+ YEARS Completed 12/14/2021 , 08/26/2021 COLORECTAL SCREENING Discontinued 08/16/2023, 09/27/2018, 10/31/2012 Colorectal Cancer Screening Discontinued FIT-DNA Q 3 years Discontinued FIT/FOBT Q 1 year Discontinued Flex Sig/CT Colonography Q 5 years Discontinued Procedures Procedure Name Priority Date/Time Associated Diagnosis Comments ERYTHROPOIETIN LEVEL Routine 05/16/2025 5:15 PM CDT LACTATE DEHYDROGENASE Routine 05/16/2025 2:18 PM CDT TRANSFERRIN RECEPTOR TFR SOLUBLE Routine 05/16/2025 1:47 PM CDT BASIC METABOLIC PANEL Routine 05/15/2025 3:12 PM CDT CBC WITH DIFFERENTIAL Routine 05/15/2025 2:56 PM CDT CBC WITH DIFFERENTIAL Routine 04/17/2025 1:50 PM CDT CBC WITH DIFFERENTIAL Routine 04/03/2025 3:35 PM CDT CBC WITH DIFFERENTIAL Routine 03/20/2025 10:51 AM CDT BASIC METABOLIC PANEL Routine 03/05/2025 1:56 PM CDT from Last 3 Months Results * ERYTHROPOIETIN LEVEL (05/16/2025 5:15 PM CDT) Blood us Edgar Collado MD CHEMISTRY ORDERABLES Final Resu lt * LACTATE DEHYDROGENASE (05/16/2025 2:18 PM CDT) Blood us Edgar Collado MD CHEMISTRY ORDERABLES Final Resu lt * TRANSFERRIN RECEPTOR TFR SOLUBLE (05/16/2025 1:47 PM CDT) Blood us Edgar Collado MD CHEMISTRY ORDERABLES Final Resu lt * BASIC METABOLIC PANEL (05/15/2025 3:12 PM CDT) Only the most recent of2 resultswithin the time period is included. Blood us Edgar Collado MD CHEMISTRY ORDERABLES Final Resu lt * CBC WITH DIFFERENTIAL (05/15/2025 2:56 PM CDT) Only the most recent of4 resultswithin the time period is included. Blood us Edgar Collado MD HEMATOLOGY ORDERABLES Final Res ult from Last 3 Months [facility]
--- OUTSIDE RECORDS SUMMARY | 2025-05-31 11:13 | XMS_ITS | Encounter Summary ---
Author Organization [facility] [employer] [facility] Address [address] [place] [address] Care Team Providers Care Paper Cutter Name Role Phone Unavailable Primary Care Provider Unavailabl e Encounter Details Date Type Department Care Team (Late Contact Info) Description 05/27/2025 Orders Only [facility] Oncology and Hematology [address] [place] [address] [place] [address] [place] [address] [facility] [address] [place] [address] Chronic anemia Social History Tobacco Use Types Packs/Day Years Used Date Smoking Tobacco: Former Smokeless Tobacco: Never Alcohol Use Standard Drinks/Week Comments Yes 0 (1 standard drink = 0.6 oz pur e alcohol) Sex and Gender Information Value Date Recorded Sex Assigned at Not on file Legal Sex Male 1:55 PM CDT Gender Identity Not on file Sexual Orientation Not on file documented as of this encounter Plan of Treatment Upcoming Encounters Date Type Department Care Team (Late st Contact Info) Description 06/26/2025 1:15 PM CDT Office Visit [facility] Oncology and Hematology - Robbie [address] [place] [address] Edgar Collado MD [address] [facility] [address] [place] [address] documented as of this encounter Visit Diagnoses Diagnosis Chronic anemia Anemia, unspecified documented in this encounter
[2025-05-31 12:33] LABS: INR 1.1; Partial Thromboplastin Time 25.3 Seconds (22.3-36.8); Prothrombin Time 14.0 Seconds (11.1-14.7)
== END 2025-05-31 11:09 | disposition home or self-care (01) ==
LOC: ANHSURGERY 11:11
PROVIDERS: PCP Physician Assistant Medical; Visit Provider Surgery
DX: D46.9 Myelodysplastic syndrome, unspecified (principal)
CPT/HCPCS: 36415; 85610; 85730

== ENCOUNTER 2025-06-03 00:22 | Day surgery (SDC) | payer MEDICARE, SELFPAY ==
--- NOTE | 2025-05-30 13:25 | PC.NURSE ---
Report to the Outpatient Waiting Room, entrance under the green pavilion located off [facility], at time _8:30 AM on date _06/03/25 . Planned Procedure Time: _10:30 AM .? Time changes happen often and if your time is changed the preop area will call you the afternoon before. - You and your visitor will be asked to self-screen and do not enter if you have any COVID symptoms. Please call surgeon if you need to reschedule. - A mask is optional within the hospital at this time. Patients may have clear liquids (water, carbonated beverages, clear teas, apple juice) until 3 hours prior to surgery ( 7:30 AM) with a maximum of 20 ounces. - No food from midnight until time of surgery and no smoking, or chewing tobacco (or any form of nicotine). No chewing gum, candy or mints. Take only the following medications with a SIP of water on the morning of surgery: __INHALER, EYE DROPS DO NOT STOP ANY OF YOUR OTHER PRESCRIPTION MEDICATIONS PRIOR TO SURGERY EXCEPT THE FOLLOWING Hold all vitamins and supplements for 3 days per anesthesiologist.LAST DOSE 05/30/25 Medications to discontinue per physician NONE Please no make-up, nail italian, hairspray, perfume, deodorant, or body powder the day of surgery.? No jewelry (including any body piercings) or valuables the day of surgery, leave them at home.? Please take a shower or bath the night before, or the morning of, surgery with an antibacterial soap.? Wear comfortable, loose fitting clothing.? Children are encouraged to wear pajamas. - Jewelry must be removed prior to entering the operating room.? Rings and piercings that are not removed may be cut off. - The hospital will not accept responsibility for valuables.? - Please leave all valuables, including medications, at home the day of surgery. If you are going home after surgery, a licensed rail car driver must drive you home.? - NO public transportation without another adult if you receive anesthesia. - We recommend that an adult stay with you for 24 hours following discharge. - We also recommend that you do not drive, make important decision, drink alcoholic beverages, or take any drugs that were not prescribed by your health care provider for at least 24 hours after your discharge time. For Pediatric surgeries, we recommend two adults accompany the child home. Follow any additional instructions given to you from your surgeon. Telephone instructions given to __PATIENT and asked if any additional questions and then verbalized understanding. Patient advised to call surgeon office or pre surgery nurse liaison [phone] if any additional questions.
[2025-05-30 13:48] VITALS: BMI 26.2
--- NOTE | ~2025-06-03 | XR_ITS ---
XR chest port-a-cath/central INDICATION: Postportacatheter insertion TECHNIQUE: 2 view chest. FINDINGS: 01/10/2007 There is mild bilateral interstitial prominence and peribronchial cuffing. There is no focal consoli dation, pleural effusion, or pneumothorax. Portacatheter tip in the SVC. The cardiomediastinal silhouette is normal. IMPRESSION: 1. Findings most consistent with bronchiolitis versus an atypical or viral pneumonia. Reviewed, dictated and finalized at location A. IMPRESSION: 1. Findings most consistent with bronchiolitis versus an atypical or viral [facility].
--- NOTE | ~2025-06-03 | XR_ITS ---
EXAMINATION: XR fl guide central line place DATE: 06/03/2025 11:31 INDICATION: Port catheter insertion TECHNIQUE: Single frontal view of the right lower chest was obtained during procedure performed by Dr Harjinder Guzman. Radiologist was not present for the imaging or procedure. The amount of fluoroscopy time used during this procedure was 0.6 minutes. Total DAP was 1.22 Gycm^2. COMPARISON: None. FINDINGS: Tip of a central venous catheter projects over the region of the superior cavoatrial junction. The ad jacent visualized portion of the right lung is clear. IMPRESSION: 1. Central venous catheter tip in the region of the superior cavoatrial junction. See procedure note for further detail. Reviewed, dictated and finalized at location A. IMPRESSION: 1. Central venous catheter tip in the region of the superior cavoatrial junctio n. See procedure note for further detail.
--- OUTSIDE RECORDS SUMMARY | 2025-06-03 00:24 | XMS_ITS | Clinical Summary ---
Author Organization [facility] Address [address] [place] [address] Care Team Providers Care Folding Machine Feeder Name Role Phone Elvin Mayer MD Primary Care Provider [phone] Source Comments [facility],non-owned Affiliates and Associated Physician Practices is amultiple site organization consisting of ambulatory clinics and hospital sitesin [place], [place], [place] and [place]. This disclosure is being madepursuant to the Care Everywhere program and may not contain all information available regarding this patient. Last updated 18.[facility] [employer] Social History Tobacco Use Types Packs/Day Years [...] Insurance AETNA AETNA MEDICARE ADV Care Teams Folding Machine Feeder Relationship Specialty Start Date End Date Elvin Mayer MD [address] [place] [address] PCP - General 04/10/18
--- OUTSIDE RECORDS SUMMARY | 2025-06-03 00:24 | XMS_ITS | Encounter Summary ---
Author Organization [facility] Address [address] [place] [address] Care Team Providers Care Ror Engineer Name Role Phone Elvin Mayer MD Primary Care Provider [phone] Encounter Details Date Type Department Care Team (Late st Contact Info) Description 03/05/2021 Lab Requisition [facility] Care Pathology Lab [address] [place] [address] Koby Tapia MD [address] [facility] [address] [place] [address] Illness, unspecified Social History Tobacco Use [...] Report Bone Marrow Patholog y Report Case: [id number] Authorizing Provider: Koby Tapia MD Collected: 03/04/2021 09:20 AM Ordering Location: [facility] Care Pathology Lab Received: 03/05/2021 03:29 PM [...] of lymphoma or high-grade myeloid neoplasm. - [place]/lambda in situ hybridization failed, pending repeat studies. - See description. Peripheral blood smear: - Macrocytic anemia.. - See description. 03/18/2021 12:19 PM [facility] PATHOLOGY [facility] at 1631 CDT AP Comment [...] cytogenetic/molecular testing is required. 03/18/2021 12:19 PM [facility] Peripheral Smear Description Leukocytes: Adequate with mild toxic/reactive changes Erythrocytes: Macrocytic anemia with mild anisopoikilocytosis including ovalocytes and mild polychromasia Platelets: Adequate with occasional giant platelets 03/18/2021 12:19 PM [facility] Bone Marrow Aspirate Differential count (200 cells): 1% blasts, 74.5% maturing myeloid precursors, 8.5% erythroid progenitors, 1.5% monocytes, 2.5% eosinophils, 11.5% lymphocytes, 0.5% plasma cells. The aspirate smears are suboptimal with some platelet clumps and very rare scant minute particles. Myeloid to erythroid ratio is 9.2:1, however, the sample is hemodilute in this may not be hospital sales representative. Myeloid maturation is intact and progresses [...] of erythroids for evaluation 03/18/2021 12:19 PM [facility] Bone Marrow Core Biopsy and [...] performed on the core biopsy in the [facility] Department of Pathology, with appropriately reactive controls, and demonstrate the following: CD34: Highlights scattered blasts (overall less than 5% of marrow cellularity) CD117: Stains scattered mast cells without forming aggregates E-cadherin: Highlights scattered erythroids CD138: Highlights plasma cells distributed singly and in small perivascular clusters, plasma cells comprise approximately 5% of marrow cellularity [place]/lambda in situ hybridization: Failed; plasma cells are present by CD138 but do not jessica with either light chain 03/18/2021 12:19 PM [facility] Flow Cytometry Summary [id number]: No evidence of non-Hodgkin lymphoma or high-grade myeloid neoplasm 03/18/2021 12:19 PM [facility] Clinical History Macrocytic anemia 03/18/2021 12:19 PM [facility] Materials Received Received are 17 slide(s) and 3 blocks labeled [id number] along with a copy of the outside pathology report. [place] [address]. All original materials are returned to the referring institution, along with a copy of our final report. 03/18/2021 12:19 PM [facility] Disclaimer The performance characteristics of all immunohistochemical and indirect immunofluorescence stains (if any) cited in this report were determined by the Histopathology Laboratory of [facility]. Some of these tests were developed by [...] the attending (teaching) pathologist. 03/18/2021 12:19 PM [facility] Addendum 1 [place]/lambda in situ hybridization studies with appropriate controls were attempted two separate blocks and negative. The number of plasma cells may be too low or this may be due to fixation. There was no increase in plasma cells by manual count or by immunohistochemistry and there is no clonal B-cell population identified on flow cytometry. The diagnosis remains unchanged. 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 These findings are consistent with a myelodysplastic syndrome. Original diagnosis remains unchanged. 03/18/2021 12:19 PM [facility] Addendum electronically signed by Nohemy Chong MD on 03/18/2021 at 1219 CDT Embedded Images 03/18/2021 12:19 PM CDT [facility] Pathology/Cytology PERIPHERAL BLOOD / Unknown [...] Edited Result - Final Performing Organization Address City/[facility] de Phone Number [facility] PATHOLOGY LAB [address] [phone] documented in this encounter Visit Diagnoses Diagnosis Illness, unspecified documented in this encounter Care Teams Ror Engineer Relationship Specialty Start Date End Date Elvin Mayer MD [address] [place] [address] PCP - General 04/10/18 documented as of this encounter
--- OUTSIDE RECORDS SUMMARY | 2025-06-03 00:24 | XMS_ITS | Clinical Summary ---
Author Organization [facility] Address [address] [address] Care Team Providers Care Oil Rag Washer Name Role Phone Unavailable Primary Care Provider [...] Department Care Team Description 05/27/2025 Orders Only [facility] Oncology and Hematology - Robbie [address] [place] [phone] Edgar Collado MD Chronic anemia 05/23/2025 4:30 PM CDT Telephone Check Up [facility] Oncology and Hematology - [address] [place] [address] Edgar Collado MD 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) 05/22/2025 Orders Only [facility] Oncology and Hematology - Rob[address] [place] [address] Edgar Collado MD 05/20/2025 Orders Only [facility] Oncology and Hematology - Robbie [address] [place] [phone] Edgar Collado MD 05/17/2025 Orders Only [facility] Oncology and Hematology - [address] [place] [address] Edgar Collado MD 05/16/2025 2:00 PM CDT Office Visit [facility] Oncology and Hematology - Robbie [address] [place] [address] Edgar Collado MD Chronic anemia (Primary Dx) 05/15/2025 External Device Data STL ABSTRACTION Provider, Abstract 05/15/2025 Orders Only [facility] Oncology and Hematology - Robbie [address] [place] [address] Edgar Collado MD Chronic anemia (Primary Dx) 05/14/2025 External Device Data STL ABSTRACTION Provider, Abstract 05/13/2025 [facility] On[facility] Hemat[facility] - Robbie [address] [place] [phone] Edgar Collado MD Chronic anemia 04/29/2025 Orders [facility] Oncology and Hematology - Robbie [address] [place] [address] Edgar Collado MD Chronic anemia 04/16/2025 External Device Data STL ABSTRACTION Provider, Abstract 04/15/2025 Orders Only [facility] Oncology and Hematology - Robbie [address] [place] [address] Edgar Collado MD Chronic anemia 04/05/2025 Orders Only [facility] Oncology and Hematology - Robbie [address] [place] [address] Edgar Collado MD 04/03/2025 Orders Only [facility] Oncology and Hematology - Robbie [address] [place] [address] Edgar Collado MD 04/01/2025 Orders Only [facility] Oncology and Hematology - Robbie [address] [place] [address] Edgar Collado MD Chronic anemia 03/26/2025 External Device Data STL ABSTRACTION Provider, Abstract 03/20/2025 External Device Data STL ABSTRACTION Provider, Abstract 03/19/2025 External Device Data STL ABSTRACTION Provider, Abstract 03/18/2025 Orders Only [facility] Oncology and Hematology - Rob[address] [place] [address] Edgar Collado MD Chronic anemia 03/08/2025 Orders Only [facility] Oncology and Hematology - Robbie [address] [place] [address] Edgar Collado MD 03/06/2025 2:00 PM CDT Office Visit [facility] Oncology and Hematology - [address]bie [address] [place] [address] Edgar Collado MD Chronic anemia (Primary Dx) 03/04/2025 Orders Only [facility] Oncology and Hematology [facility] [address] [place] [address] Edgar Collado MD Chronic anemia from Last 3 Months Immunizations Immunization Administration Dates Next Due (PFIZER)(12 YR UP) COVID-19 VACCINE - EMERGENCY USE AUTHORIZATION, MRNA, [id number](PF) 30 MCG/0.3 ML IM SUSP 06/23/2021,06/09/2021 Family [...] Description 06/26/2025 1:15 PM CDT Office Visit [facility] Oncology and Hematology [facility] [address] [place] [address] Edgar Collado MD [address] [facility] [address] [place] [address] Health Maintenance Due Date Last Done [...] Res ult from Last 3 Months [facility]
--- OUTSIDE RECORDS SUMMARY | 2025-06-03 00:24 | XMS_ITS | Encounter Summary ---
Author Organization [facility] Address [address] [place] [address] Care Team Providers Care Ironmolder Name Role Phone Elvin Mayer MD Primary Care Provider [phone] Encounter Details Date Type Department Care Team (Late st Contact Info) Description 03/04/2021 Lab Requisition [facility] Pathology Lab [address] [place] [address] Koby Tapia MD [address] [facility] [address] [place] [address] Anemia in other chronic diseases classified [...] AM CDT) Case Report Flow Cytometry Case: [id number] Authorizing Provider: Koby Tapia MD Collected: 03/04/2021 09:20 AM Ordering Location: [facility] Care Pathology Lab Received: 03/04/2021 02:51 PM Pathologist: Chiquis Edwards Mai, DO Specimen: Bone Marrow 03/04/2021 7:01 PM CDT [facility] Final Diagnosis Bone marrow, flow cytometric immunophenotypic analysis: - No evidence of non-Hodgkin lymphoma or high-grade myeloid neoplasm. - See interpretation. 03/04/2021 7:01 PM [facility] PATHOLOGY LAB at [address] [facility] Flow Cytometry Interpretation The bone marrow specimen [...] the flow cytometry specimen is reviewed for lead quality technician purposes. The smear is spiculated and cellular. The bone marrow aspirate specimen shows no evidence of involvement by non-Hodgkin lymphoma or a high-grade myeloid neoplasm. Correlation with clinical findings, the concurrent bone marrow core biopsy (accession number pending), and relevant cytogenetic/molecu lar studies is required. 03/04/2021 7:01 PM [facility] PATH[facility] Flow Cytometry Results Differential Result Comment Flow Cell Count /uL 205,000 Total Viability % 100.0 Lymphocytes % 9 Dim CD45 Region % 7 Monocytes % 9 Granulocytes % 74 03/04/2021 7:01 PM [facility] PATH[facility] Reason for test Anemia in other chronic diseases classified elsewhere 03/04/2021 7:01 PM [facility] Client Specimen ID # [id number] 03/04/2021 7:01 PM [facility] Number of markers 19 were performed. A-1 Flow CD2 A-3 Flow CD14 A-6 Flow CD117 A-7 Flow CD11b A-8 Flow CD11c A-11 Flow CD10 A-12 Flow CD13 A-14 Flow CD20 A-2 Flow CD7 A-4 Flow CD56 A-5 Flow CD64 A-10 Flow CD5 A-13 Flow CD19 A-15 Flow CD33 A-16 Flow CD34 A-17 Flow CD45 A-9 Flow HLA-DR A-18 Waggaman+CD19+ A-19 Lambda+CD19+ 03/04/2021 7:01 PM [facility] PATHOLOG[facility] LAB Disclaimer Test performed at [facility], [address] [place] [address], [address]. *The established laboratory minimum viability is 70%. [...] complexity clinical testing. 03/04/2021 7:01 PM CDT [facility] PATH[facility] Embedded Images 7:01 PM CDT [facility] Pathology/Cytolo gy BONE MARROW SPECIMEN / Unknown 03/04/2021 9:20 AM CDT 03/04/2021 2:51 PM CDT Koby Tapia MD LAB - PATHOLOGY/CYTOLOGY ORDER DIANA Final Result Performing Organization Address City/State/[facility] Co de Phone Number [facility] [address] [phone] documented in this encounter Visit Diagnoses Diagnosis Anemia in other chronic diseases classified elsewhere documented in this encounter Care Teams Ironmolder Relationship Specialty Start Date End Date Elvin Mayer MD [facility] [facility] [place] [address] PCP - General 04/10/18 documented as of this encounter
[2025-06-03] MEDS: LACTATED RINGERS 1,000 ML 30 ML IV CONT (08:19)
[2025-06-03 08:30] VITALS: BP 150/76; PULSE 75; RESP 18; TEMP 36.2; O2SAT 100
[2025-06-03 08:59] LABS: Hematocrit 22.0 % (42.0-52.0); Mean Corpuscular HGB Conc 30.9 g/dl (32-36); Mean Corpuscular Hemoglobin 42.2 pg (26-34); Mean Corpuscular Volume 136.6 fl (80-100); Platelet Count Result 369 k/mm3 (150-375); Red Blood Count 1.61 M/mm3 (4.6-6.20); White Blood Count 6.3 K/mm3 (4.5-10.0)
[2025-06-03 09:04] LABS: Hemoglobin 6.8 g/dL (14.0-18.0)
--- NOTE | 2025-06-03 09:14 | P.PNAN_ITS ---
Anes - Initial Pre Proc Eval Procedure: Operation Date: 06/03/25 10:30 Proposed Procedures p Insertion Denise Cath - David Guzman MD Date/Time: 06/03/25 09:14 Surgeon: David Guzman MD Pre Op Diagnosis: myelodysplastic syndrome Patient Data Age: 79 Gender: M Height: 1.88 m Weight: 93.4 kg Last Vital Signs Temp 36.2 C L 06/03/25 08:30 Pulse 75 06/03/25 08:30 Resp 18 06/03/25 08:30 BP 150/76 H 06/03/25 08:30 Pulse Ox 100 06/03/25 08:30 O2 Del Method Room Air 06/03/25 08:30 Allergies Allergy/AdvReac Type Severity Reaction Status Date / Time codeine Allergy Unknown TINGLING, Verified 06/03/25 09:00 FLUSHING ether Allergy Unknown NAUSEA/VOMI Verified 06/03/25 09:00 TING Home Medications ?Medication ?Instructions ?Recorded ?Confirmed ?Type albuterol sulfate 90 mcg/actuation 2 puff inhalation DAILY PRN 03/04/21 05/30/25 History aerosol inhaler (Ventolin HFA) Shortness Of Breath dorzolamide 22.3 mg-timolol 6.8 1 drp EACH EYE BID 03/04/21 06/03/25 History mg/mL eye drops latanoprost 0.005 % eye drops 1 drp EACH EYE HS 03/04/21 06/03/25 History umeclidinium 62.5 mcg/actuation 1 inh inhalation DAILY 03/04/21 06/03/25 History blister powder for inhalation (Incruse Ellipta) cyclobenzaprine 5 mg tablet 5 mg PO DAILY 08/08/23 06/03/25 History cyanocobalamin (vitamin B-12) 1,000 mcg PO DAILY 05/30/25 06/03/25 History 1,000 mcg capsule famotidine-Ca carb-mag hydrox 10 1 tablet PO DAILY PRN indigestion 05/30/25 05/30/25 History mg-800 mg-165 mg chewable tablet (Acid Controller Complete) red beet 500 mg capsule 500 mg PO DAILY 05/30/25 06/03/25 History sertraline 25 mg tablet 25 mg PO HS 05/30/25 06/03/25 History vitamin E 268 mg (400 unit) capsule 268 mg PO DAILY 05/30/25 06/03/25 History Laboratory Tests 06/03/25 08:53 WBC 6.3 K/mm3 (4.5-10.0) RBC 1.61 L M/mm3 (4.6-6.20) Hgb 6.8 L* g/dL (14.0-18.0) Hct 22.0 L % (42.0-52.0) MCV 136.6 H fl (80-100) MCH 42.2 H pg (26-34) MCHC 30.9 L g/dl (32-36) RDW 17.1 H % (11.5-14.5) Plt Count 369 k/mm3 (150-375) MPV 10.6 H fl (7.4-10.4) Patient hx anesthesia problems: none Family hx anesthesia problems: none Results Review: All pre-operative results and documents have been reviewed as part of the pre- operative evaluation. [facility] Surgical History Surgical History History of tonsillectomy H/O knee surgery Social History Social History Smoking packs per day: 1 Smoking cigarettes per day: 20.0 Years smoked: 50 Smoking pack-years: 50.00 Smoking status: Former smoker Tobacco type: cigarettes Alcohol intake: current Substance use: current Substance use type: marijuana Other substance usage details: smokes marijuana Last use: 08/07/23 Living arrangements: other Additional living arrangements comments: With sp Spiritual care concerns: No Anes - Eval Final PreProcedure Day of Procedure 06/03/25 09:14 Patient weight: overweight Heart: regular rate and rhythm Lungs: decreased breath sounds Airway: Mallampati scale class II Neurological: alert and oriented Last oral intake: >/= 8 hours ASA classification: IV Emergent: no Anesthetic plan: proceed Anesthesia type and monitoring: general GIVS and standard monitoring Results Review: All pre-operative results and documents have been reviewed as part of the pre- operative evaluation. Informed Consent: The patient's anesthetic plan and its attendant risks and benefits were discussed with the patient/family/POA. Questions were solicited and answers provided to the satisfaction of the patient/family/POA.
--- NOTE | 2025-06-03 10:27 | PM.IMHP ---
H&P: HPI History of Present Illness Date/Time: 06/03/25 10:27 Chief Complaint: Myelodysplastic syndrome Narrative: Pt with myelodysplasia who has had 2 prior courses of chemotx. He is now to have another course of treatment and needs placement of a portacatheter for this round. No prior hx of port placement or central line. No hx of clavicle fx. Has COPD. Hb was 6.8 this am but chronic. Platelet count is adequate. Review of Systems Review of Systems: The remainder of the review of systems to include constitutional, HEENT, cardiovascular, respiratory, GI, , integumentary, musculoskeletal, endocrine, immunologic, hematologic, psychiatric, and neurologic are all negative except for which is mentioned above in the HPI. [facility] Surgical History Surgical History History of tonsillectomy H/O knee surgery Social History Social History Smoking packs per day: 1 Smoking cigarettes per day: 20.0 Years smoked: 50 Smoking pack-years: 50.00 Smoking status: Former smoker Tobacco type: cigarettes Alcohol intake: current Substance use: current Substance use type: marijuana Other substance usage details: smokes marijuana Last use: 08/07/23 Living arrangements: other Additional living arrangements comments: With sp Spiritual care concerns: No Meds Home Medications and Allergies Home Medications ?Medication ?Instructions ?Recorded ?Confirmed ?Type albuterol sulfate 90 mcg/actuation 2 puff inhalation DAILY PRN 03/04/21 05/30/25 History aerosol inhaler (Ventolin HFA) Shortness Of Breath dorzolamide 22.3 mg-timolol 6.8 1 drp EACH EYE BID 03/04/21 06/03/25 History mg/mL eye drops latanoprost 0.005 % eye drops 1 drp EACH EYE HS 03/04/21 06/03/25 History umeclidinium 62.5 mcg/actuation 1 inh inhalation DAILY 03/04/21 06/03/25 History blister powder for inhalation (Incruse Ellipta) cyclobenzaprine 5 mg tablet 5 mg PO DAILY 08/08/23 06/03/25 History cyanocobalamin (vitamin B-12) 1,000 mcg PO DAILY 05/30/25 06/03/25 History 1,000 mcg capsule famotidine-Ca carb-mag hydrox 10 1 tablet PO DAILY PRN indigestion 05/30/25 05/30/25 History mg-800 mg-165 mg chewable tablet (Acid Controller Complete) red beet 500 mg capsule 500 mg PO DAILY 05/30/25 06/03/25 History sertraline 25 mg tablet 25 mg PO HS 05/30/25 06/03/25 History vitamin E 268 mg (400 unit) capsule 268 mg PO DAILY 05/30/25 06/03/25 History Allergies Allergy/AdvReac Type Severity Reaction Status Date / Time codeine Allergy Unknown TINGLING, Verified 06/03/25 09:00 FLUSHING ether Allergy Unknown NAUSEA/VOMI Verified 06/03/25 09:00 TING Vital Signs Vital Signs - 24 hr 06/03/25 08:30 Temperature 36.2 C L Pulse Rate 75 Respiratory Rate 18 Blood Pressure 150/76 H Pulse Oximetry 100 Oxygen Delivery Room Air Exam Const: General: comfortable and no acute distress HENMT: Ears: TM's normal bilaterally Face/Nose/Sinus: Normal nares present Mouth: Yes moist mucous membranes Eyes: General: appearance normal, both eyes and all related structures Sclera: sclerae normal EOM: EOMs intact bilaterally Neck: Neck: no JVD Chest: Other: No rashes, clavicles symmetric. Resp: Effort & Inspection: normal respiratory effort Auscultation: clear to auscultation bilaterally Cardio: Rate: regular rate Rhythm: regular rhythm GI: GI Palp: Yes Soft to palpation, No Firmness to palpation present (GI), No Tenderness to palpation present (GI), No Guarding due to palpation present (GI) and No Hernia present Skin: General skin exam: normal color and no rashes or lesions noted Neuro: General: gait normal Speech: normal speech Motor exam (neuro): 5/5 motor strength present throughout Sensory Exam: normal sensation Extrem: General: normal to inspection Psych: Mental Status: mental status grossly normal Affect: normal affect H&P: Results Labs Labs: Short CBC 06/03/25 Range/Units 08:53 WBC 6.3 (4.5-10.0) K/mm3 Hgb 6.8 L* (14.0-18.0) g/dL Hct 22.0 L (42.0-52.0) % Plt Count 369 (150-375) k/mm3 Assessment and Plan Assessment and plan (1) MDS (myelodysplastic syndrome): Code(s): D46.9 - Myelodysplastic syndrome, unspecified Status: Acute Assessment and Plan: Pt presents for portacatheter placement today. Hb chronic low but is 6.8 today. Platelet count is 369k. Will proceed with port placement today. Risks, benefits, indications, and expected outcomes were discussed in detail with the patient and/or family. They understand and I have answered all other questions. They wished to proceed with surgery as outlined above. Specific risk for iatrogenic pneumothorax with need for chest tube and bleeding needing blood transfusion discussed. He understands and wishes to proceed.
--- NOTE | 2025-06-03 10:32 | WPDHPUPDATE1 ---
History and Physical Update Update Date/Time: 06/03/25 10:32 History and Physical has been reviewed, including an updated exam of the patient. There are NO changes in the patient's condition. Risks, benefits, and alternatives have been discussed and questions answered. Patient agrees to proceed with procedure.
[2025-06-03] MEDS: LIDO 1%/EPINEPHRINE 1:100,000 50 ML VIAL 30 ML INFILTRATE (10:40)
[2025-06-03] MEDS: ceFAZolin 2 GM in SODIUM CHLORIDE 0.9% IV 50 ML 100 ML IVPB (10:40)
--- NOTE | 2025-06-03 11:33 | P.OP_ITS ---
Procedure Note - Detailed Date of Procedure 06/03/25 Pre-op Diagnosis myelodysplastic syndrome Post-op Diagnosis Same Procedure Performed Placement of right subclavian vein melina catheter with intraoperative fluoroscopy. Surgeon David Guzman MD [employer] Brayan Harrison [employer] Anesthesia General Indications Patient is a 79-year-old gentleman who has myelodysplastic syndrome. He is to undergo uses an chemotherapy treatments. He placed presents now for placement of melina catheter for treatments. Findings None significant Description of Procedure After informed consent was obtained patient brought to the operating was placed supine position and general LMA anesthesia was administered. The bilateral upper anterior neck and chest was then prepped and draped usual sterile fashion. Time-out was then performed correctly identifying the patient as well as procedure to be performed. He was given perioperative IV antibiotics. You 1% lidocaine mixed with 0.5% Marcaine was injected just below the medial 3rd of the right clavicle. A transverse incision was then made over the scalp and then dissection was carried down through the subcutaneous tissue with electrocautery. Then with the patient head-down Trendelenburg position with the a long 18gauge spinal needle I was then able to percutaneously cannulate the right subclavian vein on the 2nd pass without any difficulty. There was prompt return of dark venous appearing blood. A guidewire was advanced through the needle into the right subclavian vein subsequent down into the superior vena cava. Intraoperative fluoroscopy was used to visualize the tip of the guidewire which was in the proper position. I then created a subcutaneous port pocket by utilized electrocautery to dissect down onto the anterior pectoralis fascia. Once the port pocket was created I then dilators and breakaway sheath over the guidewire. The guidewire and dilator were removed leaving the sheath in place. A 9.6 Nigerian single-lumen silastic catheter was advanced through the sheath into the right subclavian vein assessment down into the right atrium of the heart. The the sheath was then torn away leaving the catheter in place. Intraoperative fluoroscopy was then used to visualize the tip of the catheter and then with traction on the catheter externals the chest wall was pulled back to the tip of the catheter was in the atriocaval junction. The catheter was then cut to the appropriate length at the skin level and attached to the titanium Smart Port. The port was then secured the subcutaneous port pocket on 3 sides utilizing 3-0 Prolene sutures. The port pocket was then irrigated sterile saline solution then accessed the port and aspirated blood easily and was flushed with heparinized saline solution. The incision was then closed utilizing interrupted 3-0 Vicryl sutures in subcutaneous tissues. Skin edges were approximated utilizing a running subcuticular 4-0 Monocryl suture. I then accessed the port percutaneously once again and accessed well with aspiration of blood easily and then flushed with 5000units of IV heparin. The incision was then cleaned and skin glue was applied. The patient tolerated the procedure well no complications. All sponges, needles, and instrument counts were correct at the end procedure. EBL was _15_cc. The patient was awakened and taken to recovery in stable and satisfactory condition. Portable chest x-ray to document final placement of the catheter and rule out iatrogenic pneumothorax is pending at time of dictation. Implants 9.6 Nigerian silastic single-lumen catheter attached to titanium Smart port right subclavian vein. Estimated Blood Loss 15 Drains No Packing No Pathology None sent Complications No immediate complications Condition Stable Disposition PACU [facility] Billing Surgery - Charge Forward: Surgery Billing
[2025-06-03 11:38] VITALS: BP 131/59; PULSE 67; RESP 16; O2SAT 98
[2025-06-03 12:08] VITALS: BP 140/61; PULSE 60; RESP 18; O2SAT 97
== END 2025-06-03 12:33 | disposition home or self-care (01) ==
PROVIDERS: PCP Physician Assistant Medical; Visit Provider Surgery
PROC: (CPT 36561; principal; 2025-06-03 10:30)
DX: D46.9 Myelodysplastic syndrome, unspecified (principal)
CPT/HCPCS: 36561; 36415; 77001; 85027; 86850; 86900; 86901; J0690; C1788; J1644; J2003; J2004; J2704; J3010; J7030; J7120

== ENCOUNTER 2025-06-10 13:50 | Outpatient (RCR) | payer MEDICARE, SELFPAY ==
[2025-06-10] MEDS: diphenhydrAMINE HCl CAP 25 MG CAPSULE PO (14:03)
[2025-06-10 14:04] VITALS: TEMP 36.6
[2025-06-10] MEDS: ACETAMINOPHEN 325 MG TABLET 650 MG PO (14:04)
[2025-06-10] MEDS: SODIUM CHLORIDE 0.9% IV 250 ML 30 ML IV CONT (14:04)
[2025-06-10 14:15] VITALS: BP 126/77; PULSE 72; RESP 16; TEMP 36.6; O2SAT 100
[2025-06-10 14:30] VITALS: BP 139/76; PULSE 74; RESP 14; TEMP 36.3; O2SAT 100
[2025-06-10 15:30] VITALS: BP 131/72; PULSE 69; RESP 16; TEMP 36.8; O2SAT 97
[2025-06-10 16:30] VITALS: BP 148/79; PULSE 71; RESP 18; TEMP 36.9; O2SAT 100
== END 2025-08-05 13:22 | disposition home or self-care (01) ==
LOC: ANHCPCTRAN 13:50
PROVIDERS: PCP Physician Assistant Medical; Visit Provider Internal Medicine Hematology & Oncology
DX: D46.9 Myelodysplastic syndrome, unspecified (principal); D63.8 Anemia in other chronic diseases classified elsewhere
CPT/HCPCS: 36415; 36430; 80047; 80053; 85025; 86850; 86900; 86901; 86923; 96367; 96375; 96413; A9270; J0894; J1100; J2405; J7050; P9016